=== PATIENT | male | born 1985 | race Caucasian/White ===

== ENCOUNTER 2017-09-10 10:52 | Emergency (ER) | payer SELFPAY ==
[2017-09-10] MEDS ORDERED: TDAP ADULT 0.5 ML INJ (BOOSTRIX) IM ONE (10:57)
[2017-09-10 11:08] VITALS: RESP 16
[2017-09-10] MEDS ORDERED: HYDROCODONE/APAP 5/325 TAB PO ONE (12:10)
[2017-09-10] MEDS ORDERED: IBUPROFEN 600 MG TAB PO ONE (12:10)
[2017-09-10 12:17] VITALS: BP 129/72
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
[2017-09-10 14:19] VITALS: PULSE 85; TEMP 98.1; O2SAT 99
== END 2017-09-10 14:20 | disposition home or self-care (01) ==
PROC: 0HQ1XZZ Repair Face Skin, External Approach (ICD-10-PCS; principal; 2017-09-10)
DX: S01.81XA Laceration without foreign body of other part of head, initial encounter (principal); S42.025A Nondisplaced fracture of shaft of left clavicle, initial encounter for closed fracture; V11.4XXA Pedal cycle driver injured in collision with other pedal cycle in traffic accident, initial encounter; Y99.8 Other external cause status; Y93.55 Activity, bike riding